=== PATIENT | female | born 1930 | race Caucasian/White ===

== ENCOUNTER 2021-09-21 06:39 | Day surgery (SDC) | payer MEDICARE ==
[~2021-09-21] VITALS: Ht 170.2 cm; Wt 70.6 kg
[2021-09-21] VITALS (9 sets, daily range): BP systolic 106–140; BP diastolic 60–86
[2021-09-21] MEDS ORDERED: ALEN70TA80 PO (07:16)
[2021-09-21] MEDS ORDERED: DOCU-345 PO (07:16)
[2021-09-21] MEDS ORDERED: PER5325T (07:16)
[2021-09-21] MEDS ORDERED: ACET-890 PO (07:16)
[2021-09-21] MEDS ORDERED: LISI5TAB22 PO (07:16)
[2021-09-21 07:47] LABS: BASOPHILS # (AUTO) 0.1 X10'3 (0-0.2); BASOPHILS % (AUTO) 1.9 % (0-1); EOSINOPHILS # (AUTO) 0.1 X10'3 (0-0.9); EOSINOPHILS % (AUTO) 3.6 % (0-6); HEMATOCRIT 38.8 % (35.0-45.0); HEMOGLOBIN 12.8 g/dl (12.0-16.0); LYMPHOCYTES # (AUTO) 1.3 X10'3 (1.1-4.8); LYMPHOCYTES % (AUTO) 33.2 % (21-51); MEAN CORPUSCULAR HEMOGLOBIN 30.9 PG (27.0-31.0); MEAN CORPUSCULAR HGB CONC 33.1 g/dL (33.0-36.5); MEAN CORPUSCULAR VOLUME 93.4 FL (78-98); MEAN PLATELET VOLUME 8.6 FL (7.4-10.4); MONOCYTES # (AUTO) 0.5 X10'3 (0-0.9); NEUTROPHILS # (AUTO) 1.9 X10'3 (1.8-7.7); NEUTROPHILS % (AUTO) 49.3 % (42-75); PLATELET COUNT 284 X10'3 (140-440); RED BLOOD COUNT 4.15 X10'6 (4.20-5.60); RED CELL DISTRIBUTION WIDTH 15.6 % (11.5-14.5); WHITE BLOOD COUNT 3.9 X10'3 (4.5-11.0)
[2021-09-21] MEDS ORDERED: diphenhydrAMINE 50 mg/ml inj ONE (07:54)
[2021-09-21] MEDS ORDERED: fentaNYL/PF 50MCG/1 ML 2ML syringe ONE (07:55)
[2021-09-21] MEDS ORDERED: midazolam 1 mg/ML 2ml injection ONE ×2 (07:55→09:10)
[2021-09-21] MEDS ORDERED: IOHEXOL 300 MG/ML 30ML INFUS..BTL IV ONE (07:55)
[2021-09-21] MEDS ORDERED: ceFAZolin 2gm in dextrose, iso 50 ML IV ONE (08:59)
[2021-09-21] MEDS ORDERED: normal saline 1000ml 1,000 ML IV SCH (10:05)
--- NOTE | 2021-09-21 11:30 | NUR ---
Written and verbal DC instructions given to pt and son, both verbalize understanding. PIV DC cath intact, VSS, Denies pain. RN assisted pt to get dressed, steady on feet. Small incisions X2 to back with skin glue, no bleeding, bruising or hematoma noted.
--- NOTE | 2021-09-21 12:15 | NUR ---
DC pt to home with son and all belongings, transferred to private car via WC. Pt able to transfer self to car without assistance.
== END 2021-09-21 12:15 | disposition home or self-care (01) ==
LOC: SSTAY O 06:39
PROVIDERS: ATTEND Radiology Vascular & Interventional Radiology
DX: M80.08XA Age-related osteoporosis with current pathological fracture, vertebra(e), initial encounter for fracture (principal); M54.6 Pain in thoracic spine; I10 Essential (primary) hypertension; E78.5 Hyperlipidemia, unspecified; G89.29 Other chronic pain; Z79.899 Other long term (current) drug therapy; Z79.01 Long term (current) use of anticoagulants
CPT/HCPCS: 22513; 22515; 36415; 85025; 85610; 99152; 99153; C1713; J0690; J1200; J2250; J3010; J7030